=== PATIENT | male | born 1980 | race Caucasian/White ===

== ENCOUNTER 2016-06-08 05:20 | Emergency (ER) | payer OTHER ==
--- NOTE | 2016-06-08 05:26 | PDOC ---
History of Present Illness - General Stated Complaint: RT ANKLE INJURY Time Seen by Provider: 06/08/16 05:24 History Source: Patient Exam Limitations: No Limitations - History of Present Illness Occurred: reports: just prior to arrival Lower Extremity Pain Location: right: ankle (lat) Method of Injury: Yes: twisted Modifying Factors: improves with: None Lower Ext. Injury Location - Specific Injury Location Knees: right no evidence of injury, right normal range of motion, right non- tender, right normal inspection Ankle: right soft tissue tenderness, right limited range of motion, right pain, right swelling Extremity Pain Location - Extremity Pain Location Extremity Pain Locations: right: ankle Past History - Travel Traveled outside of the country in the last 30 days: No Close contact w/someone who was outside of country & ill: No - Past Medical History Allergies/Adverse Reactions: Allergies Allergy/AdvReac Type Severity Reaction Status Date / Time No Known Allergies Allergy Verified 09/19/13 14:53 Home Medications: Ambulatory Orders Pantoprazole Sodium [Protonix] 40 mg PO DAILY 09/19/13 Anemia: No Asthma: No Cancer: No Cardiac Disorders: No CVA: No COPD: No CHF: No Dementia: No Diabetes: No GI Disorders: Yes (RECENT EPISODES OF REGURGITATION AFTER EATING) Disorders: No HTN: No Hypercholesterolemia: No Liver Disease: No Seizures: No Thyroid Disease: No - Surgical History Abdominal Surgery: No Appendectomy: No Cardiac Surgery: No Cholecystectomy: No Lung Surgery: No Neurologic Surgery: No Orthopedic Surgery: No - Psycho/Social/Smoking Cessation Hx Anxiety: No Suicidal Ideation: No Smoking Status: No Smoking History: Never smoked Have you smoked in the past 12 months: No Number of Cigarettes Smoked Daily: 0 Hx Alcohol Use: Yes (RARELY) Drug/Substance Use Hx: No Substance Use Type: Alcohol Hx Substance Use Treatment: No Review of Systems - Review of Systems Comments:: 06/08/16 05:27 CONSTITUTIONAL: Absent: fever, chills, diaphoresis, generalized weakness, malaise, loss of appetite HEENT: Absent: rhinorrhea, nasal congestion, throat pain, throat swelling, difficulty swallowing, mouth swelling, ear pain, eye pain, visual Changes CARDIOVASCULAR: Absent: chest pain, loss of consciousness, palpitations, irregular heart rate, peripheral edema RESPIRATORY: Absent: cough, shortness of breath, dyspnea with exertion, orthopnea, wheezing, stridor, hemoptysis GASTROINTESTINAL: Absent: abdominal pain, abdominal distension, nausea, vomiting, diarrhea, constipation, melena, hematochezia MUSCULOSKELETAL: see below Absent: myalgia, arthralgia SKIN: Absent: rash, itching, pallor Right ankle pain *Physical Exam - Physical Exam Comments: 06/08/16 05:28 GENERAL: Well developed, well nourished. Awake and alert. No acute distress. HEENT: Normocephalic, atraumatic. PERRLA, EOMI. No conjunctival pallor. Sclera are non- icteric. Moist mucous membranes. Oropharynx is clear. MUSCULOSKELETAL Excluded Normal range of motion at all joints. No bony deformities or tenderness. No CVA tenderness. EXTREMITIES: No cyanosis. No clubbing. No edema. No calf tenderness. SKIN: Warm and dry. Normal capillary refill. No rashes. No jaundice. NEUROLOGICAL: Alert, awake, appropriate. Cranial nerves 2-12 intact. No deficits to light touch and temperature in face, upper extremities and lower extremities. No motor deficits in the in face, upper extremities and lower extremities. Normoreflexic in the upper and lower extremities. Normal speech. Toes are down- going bilaterally. Gait is normal without ataxia. PSYCHIATRIC: Cooperative. Good eye contact. Appropriate mood and affect. right ankle limited R.O.M. +swelling to lat aspect 2+dp pulse neg obv deformities Pain on palp to lat aspect Right foot Neg pain on palp to lat malleolus 2+ pedal pulse neg obv deformities right knee F.R.O.M. neg pain on palp neg ov def ED Treatment Course - RADIOLOGY Radiograph Interpretation: 06/08/16 05:36 Xray right ankle neg fx/dislocations Progress Note - Progress Note Progress Note: 35 yo M [place] c/o right lat ankle pain after "rolling it when chasing someone". Pain is described as 5/10 dull intermittent non radiating pain. Pain is exacerbated on weight bear. Alleviated at rest. Pt denies ext numbness/tingling sensation, knee/foot pain. Pt denies any knee/calf/foot pain. Right ankle Green *DC/Admit/Observation/Transfer Diagnosis at time of Disposition: Right ankle sprain Qualifiers: Encounter type: initial encounter Involved ligament of ankle: other ligament Qualified Code(s): S93.491A - Sprain of other ligament of right ankle, initial encounter - Discharge Dispostion Disposition: HOME Condition at time of disposition: Stable Admit: No - Referrals Referrals: Bishnu Whitlock MD [Staff Physician] - - Patient Instructions Additional Instructions: Rest Ice 20 mins on alternating with 20 mins off for 48 hours while awake Elevate Tylenol/Motrin for pain Return to the ER for severe/persistent/worsening symptoms, extremity numbness/ tingling sensation.
[2016-06-08 05:39] VITALS: BP 136/75; PULSE 77; TEMP 98.7; BMI 29.2
== END 2016-06-08 05:58 | disposition home or self-care (01) ==
LOC: JER 05:20
DX: S93.491A Sprain of other ligament of right ankle, initial encounter (principal); X50.1XXA Overexertion from prolonged static or awkward postures, initial encounter; Y35.891A Legal intervention involving other specified means, law enforcement official injured, initial encounter; Y93.02 Activity, running; Y92.89 Other specified places as the place of occurrence of the external cause; Y99.0 Civilian activity done for income or pay
CPT/HCPCS: 73610-TC-RT; 99282-25

== ENCOUNTER 2020-06-16 19:00 | Emergency (ER) | payer OTHER ==
[2020-06-16 19:11] VITALS: BP 123/82; PULSE 82; TEMP 99.2; BMI 30.7
== END 2020-06-16 19:55 | disposition home or self-care (01) ==
LOC: FER 19:00
DX: R00.2 Palpitations (principal)
CPT/HCPCS: 99282-25

== ENCOUNTER 2021-06-16 06:40 | Emergency (ER) | payer OTHER ==
[2021-06-16 07:01] VITALS: BP 120/75; PULSE 88; TEMP 97.9; BMI 29.9
[2021-06-16] MEDS ORDERED: FLUORESCEIN NA 1 EA STRIP OS ONE (07:21)
[2021-06-16] MEDS ORDERED: FLUORESCEIN NA 1 EA STRIP ONE (07:23)
== END 2021-06-16 08:01 | disposition home or self-care (01) ==
LOC: FER 06:40
DX: H57.89 Other specified disorders of eye and adnexa (principal)
CPT/HCPCS: 99283-25

== ENCOUNTER 2022-02-13 07:25 | Emergency (ER) | payer OTHER ==
[2022-02-13] MEDS ORDERED: DIPHTH,PERTUSS(ACELL),TET 0.5 ML DISP.SYRIN IM ONE ×2 (07:36→07:50)
[2022-02-13] MEDS ORDERED: BACITRACIN 0.9 GM PACKET TP ONE (07:44)
[2022-02-13 07:46] VITALS: BP 136/83; PULSE 82; RESP 18; TEMP 99.2; BMI 31.3
== END 2022-02-13 08:00 | disposition home or self-care (01) ==
LOC: FER 07:25
PROC: 3E0234Z Introduction of Serum, Toxoid and Vaccine into Muscle, Percutaneous Approach (ICD-10-PCS; principal; 2022-02-13)
DX: S00.81XA Abrasion of other part of head, initial encounter (principal); Y04.8XXA Assault by other bodily force, initial encounter
CPT/HCPCS: 90715; 99283-25